=== PATIENT | female | born 1970 | race Caucasian/White ===

== ENCOUNTER 2017-10-19 13:08 | Emergency (ER) | payer BC ==
--- NOTE | 2017-10-19 13:27 | EDPHY ---
H & P Time Seen by Provider: 10/19/17 13:27 HPI/ROS: Chief complaint. Cough, achy HPI. 47-year-old female presents emergency department with cough for 1 month. She is visiting from [place]. For the past 2-3 days she has had some chills and sore throat. She does not think fever. Somewhat achy. Congested. No vomiting or diarrhea. Slight shortness of breath while driving. Slightly dizzy. Exposure to Infectious Disease in her job at home. She is here with family member who sick. A nephew in the family has recently and been diagnosed with HSP. ROS Constitutional. Chills Eyes. no problems with vision ENT. Congested, sore throat Cardiovascular. no chest pain Respiratory. Slight shortness of breath, cough Abdominal. no abdominal pain, no nausea/vomiting, no diarrhea . no problems urinating MS. no calf pain/swelling, no neck/back pain, no joint pain Skin. no rash Lymph. no swollen glands Neuro. no headache, no dizziness, no difficulty walking or with speech Past Medical/Surgical History: Breast reduction, orthopedic, eye surgeries Social History: , nonsmoker, no alcohol Smoking Status: Never smoked Physical Exam: General Appearance: Alert and fell a female mild distress vital signs stable Eyes: Pupils equal and round no pallor or injection. ENT, tympanic membranes are normal. Pharynx slightly injected without exudate. Mucous membranes are moist. Respiratory: No retractions. Mild inspiratory expiratory rhonchi Cardiovascular: Regular rate and rhythm. Gastrointestinal: Abdomen is soft and nontender, no masses, bowel sounds normal. Neurological: Awake and alert, sensory and motor exams grossly normal. Skin: Warm and dry, no rashes. Musculoskeletal: Neck is supple nontender. Extremities symmetrical, full range of motion. Psychiatric: Patient is oriented X 3, there is no agitation. Constitutional: Initial Vital Signs Temperature (C) 37.0 C 10/19/17 13:20 Heart Rate 88 10/19/17 13:20 Respiratory Rate 16 10/19/17 13:20 Blood Pressure 175/97 H 10/19/17 13:20 O2 Sat (%) 95 10/19/17 13:20 O2 Delivery Mode Room Air Allergies/Adverse Reactions: No Known Allergies Allergy (Verified 10/19/17 13:19) Home Medications: Medication Instructions Recorded Bcp 12/30/17 Medical Decision Making - Diagnostics Imaging Results: Imaging Impressions Chest X-Ray 10/19/17 13:47 Impression: 1. Mild airways disease. No pneumonia. 2. Mild cardiomegaly without decompensation. Chest x-ray interpreted by me shows no pneumonia ED Course/Re-evaluation: Re-evaluation 2:15 p.m.. Patient is stable. The patient and I discussed imaging study results, treatment plan including criteria for return importance of follow-up further evaluation. She expresses understanding and agreement Differential Diagnosis: I think this likely viral syndrome. Patient has been ill with cough for 1 month. No evidence for pneumonia or bacterial infection Departure - Departure Disposition: Home, Routine, Self-Care Clinical Impression: Viral syndrome Condition: Good Instructions: Viral Syndrome (ED) Additional Instructions: Drink plenty of fluids and stay hydrated. Vaporizer or humidifier. Tylenol and ibuprofen as needed for fever. Return for worsening breathing. Follow up with your physician upon return home to [place]. Referrals: CODY DAMIAN MD [Other] - As per Instructions
[2017-10-19 13:41] VITALS: BP 175/97; PULSE 88; RESP 16; TEMP 98.6; O2SAT 95
== END 2017-10-19 14:33 | disposition home or self-care (01) ==
LOC: CED 13:08
DX: B34.9 Viral infection, unspecified (principal)
CPT/HCPCS: 71020-PO